=== PATIENT | female | born 1995 | race Caucasian/White ===

== ENCOUNTER 2017-08-14 18:21 | Inpatient (IN) ==
--- NOTE | 2017-08-14 19:26 | Emergency Department Note ---
Disposition Clinical Impression: Auditory hallucination, Suicidal ideation Disposition: Admitted As Inpatient Condition: Good Time of Disposition: 21:21 General Adult HPI - General Chief complaint: ED Psychiatric Symptoms Stated complaint: SI/auditory hallucinations Time Seen by Provider: 08/14/17 18:29 Source: patient, EMS Limitations: no limitations Nursing Notes Reviewed: Yes Vital Signs Reviewed: Yes - History of Present Illness HPI Narrative: 22-year-old female presents emergency department complaint of suicidal ideation and auditory hallucinations. Patient was sent here by her counselor for having auditory hallucinations telling her to kill herself. Patient did have a specific plan of driving her car into the counseling center. Patient denies homicidal ideation. Patient denies ever being hospitalized previously for this. She states she should be on medication for depression but stopped taking it 1 month ago. She denies any intentional ingestion prior to arrival. She states her last menstrual period was approximately a week and a half ago. She denies any medical complaints or concerns at this time. Pain Scale: 0 - Related Data Home Medications Medication Instructions Recorded Confirmed No Known Home Drugs 08/14/17 08/14/17 Allergies Allergy/AdvReac Type Severity Reaction Status Date / Time No Known Allergies Allergy Verified 01/06/17 17:14 All systems ED: reviewed and negative except as stated. Constitutional: Denies: fever Eyes: Reports: as per HPI ENT ED: Reports: as per HPI Cardiovascular: Denies: chest pain, palpitations Respiratory: Denies: cough, dyspnea, wheezes Gastrointestinal: Denies: abdominal pain, nausea, vomiting Genitourinary: Reports: as per HPI Musculoskeletal: Reports: as per HPI Integumentary: Reports: as per HPI Neurological: Reports: as per HPI Psychiatric: Reports: depression, suicidal thoughts, auditory hallucinations Endocrine: Reports: as per HPI Hematological/Lymphatic: Reports: as per HPI Allergic/Immunologic: Reports: as per HPI Past Medical History - Past Medical History Attestation: Yes The following information was validated with the patient. Medical history: Reports: no medical history Psychiatric history: Reports: no psych history BOW STAPLER history: Reports: no BOW STAPLER history - Social History Smoking Status: Current every day smoker Smokeless Tobacco Status: No Alcohol use: Reports: none Drug use: Reports: none Physical Exam - General Limitations: no limitations General appearance: alert, in no apparent distress - Head Head exam: atraumatic, normocephalic, normal inspection - Eye Eye exam: Present: normal appearance. Absent: scleral icterus, conjunctival injection - Chest Chest inspection: Present: normal inspection, symmetric chest wall rise. Absent : tenderness, rash - Respiratory Respiratory exam: Present: normal lung sounds bilaterally. Absent: respiratory distress, wheezes - Cardiovascular Cardiovascular exam: Present: regular rate, normal rhythm, normal heart sounds - Abdominal Exam Abdominal exam: Present: soft, Non-Tender. Absent: distention, guarding, rebound - Extremities Exam Extremities exam: Present: normal inspection, full ROM - Neurological Exam Neurological exam: Present: alert, oriented X3 - Psychiatric Psychiatric exam: Present: depressed, flat affect, suicidal ideation - Skin Skin exam: Present: warm, intact Course Course Narrative: 22-year-old female presenting with suicidal ideation with plan. We will obtain psychiatric lab work along with urine and urine test. We will then contact our services 1A for further psychiatric workup. Patient alert and oriented 3 in the room and stable vital signs. - Reevaluation(s) Reevaluation #1: Patient was evaluated at bedside by 1 day. It is determined that she fits inpatient criteria. Dr. Barker except the patient at this time. Time: 21:21 Vital Signs Temperature 98.0 F 08/14/17 18:34 Pulse Rate 92 08/14/17 18:34 Respiratory Rate 18 08/14/17 18:34 Blood Pressure 120/82 08/14/17 18:34 O2 Sat by Pulse Oximetry 97 08/14/17 18:34 Temperature 98.0 F 08/14/17 18:34 Pulse Rate 92 08/14/17 18:34 Respiratory Rate 18 08/14/17 18:34 Blood Pressure 120/82 08/14/17 18:34 O2 Sat by Pulse Oximetry 97 08/14/17 18:34 Oxygen Delivery Oxygen Delivery Room Air Medical Decision Making - Lab Data Result diagrams: 08/14/17 19:21 08/14/17 19:21 Lab Results 08/14/17 08/14/17 08/14/17 Range/Units 19:14 19:14 19:14 WBC (4.3-11.1) K/mcL RBC (3.82-4.97) M/mcL Hgb (11.5-15.4) g/dL Hct (35.3-44.9) % MCV (83.0-100.0) fL MCH (28.0-33.3) pg MCHC (31.6-35.5) g/dL RDW (11.5-14.5) % Plt Count (140-400) K/mcL MPV (9.4-12.4) fL Immature Gran % (0-4) % Seg Neutrophils % % Lymphocytes % % Monocytes % % Eosinophils % % Basophils % % Neutrophils # (1.6-8.9) K/mcL Lymphocytes # (0.6-4.6) K/mcL Monocytes # (0.0-1.3) K/mcL Eosinophils # (0.0-0.6) K/mcL Basophils # (0.0-0.2) K/mcL Immature Plt Fraction (1.1-6.1) % Sodium (136-145) mEq/L Potassium (3.5-4.5) mEq/L Chloride (98-109) mEq/L Carbon Dioxide (19-29) mEq/L BUN (7-20) mg/dL Creatinine (0.57-1.11) mg/dL Est GFR ( Amer) (> 60) Est GFR (Non-Af Amer) (> 60) BUN/Creatinine Ratio (6-26) Glucose (70-99) mg/dL Calculated Osmolality (280-300) Calcium (8.6-10.8) mg/dL Urine Color Yellow (Yellow) Urine Clarity Clear (Clear) Urine pH 6.5 (5.0-8.0) pH Units Ur Specific Calvin 1.016 (1.010-1.025) Urine Protein Negative (Neg-Trace) mg/dL Urine Glucose (UA) Normal (Normal) mg/dL Urine Ketones Negative (Negative) mg/dL Urine Blood Negative (Negative) Urine Nitrite Negative (Negative) Urine Bilirubin Negative (Negative) Urine Urobilinogen Normal (Normal) mg/dL Ur Leukocyte Esterase Negative (Negative) Urine Test Negative (Negative) Salicylates (15-30) mg/dL Urine Opiates Screen Negative (Mpdpkk=318) ng/mL Acetaminophen (10-30) mcg/mL Ur Barbiturates Screen Negative (Anmxpl=183) ng/mL Ur Phencyclidine Scrn Negative (Cutoff=25) ng/mL Ur Amphetamines Screen Negative (Cjpkkx=8321) ng/mL U Benzodiazepines Scrn Negative (Omqwnh=335) ng/mL Urine Cocaine Screen Negative (Cutoff= 300) ng/mL U Marijuana (THC) Screen Negative (Cutoff = 50) ng/mL Ethyl Alcohol (0-10) mg/dL 08/14/17 08/14/17 Range/Units 19:21 19:21 WBC 6.6 (4.3-11.1) K/mcL RBC 5.00 H (3.82-4.97) M/mcL Hgb 15.0 (11.5-15.4) g/dL Hct 43.9 (35.3-44.9) % MCV 87.8 (83.0-100.0) fL MCH 30.0 (28.0-33.3) pg MCHC 34.2 (31.6-35.5) g/dL RDW 13.3 (11.5-14.5) % Plt Count 256 (140-400) K/mcL MPV 9.5 (9.4-12.4) fL Immature Gran % 0.3 (0-4) % Seg Neutrophils % 51.2 % Lymphocytes % 35.6 % Monocytes % 10.3 % Eosinophils % 1.8 % Basophils % 0.8 % Neutrophils # 3.4 (1.6-8.9) K/mcL Lymphocytes # 2.4 (0.6-4.6) K/mcL Monocytes # 0.7 (0.0-1.3) K/mcL Eosinophils # 0.1 (0.0-0.6) K/mcL Basophils # 0.1 (0.0-0.2) K/mcL Immature Plt Fraction 3.9 (1.1-6.1) % Sodium 141 (136-145) mEq/L Potassium 3.6 (3.5-4.5) mEq/L Chloride 108 (98-109) mEq/L Carbon Dioxide 22 (19-29) mEq/L BUN 7 (7-20) mg/dL Creatinine 0.79 (0.57-1.11) mg/dL Est GFR ( Amer) > 60 (> 60) Est GFR (Non-Af Amer) > 60 (> 60) BUN/Creatinine Ratio 9 (6-26) Glucose 96 (70-99) mg/dL Calculated Osmolality 290 (280-300) Calcium 9.3 (8.6-10.8) mg/dL Urine Color (Yellow) Urine Clarity (Clear) Urine pH (5.0-8.0) pH Units Ur Specific Calvin (1.010-1.025) Urine Protein (Neg-Trace) mg/dL Urine Glucose (UA) (Normal) mg/dL Urine Ketones (Negative) mg/dL Urine Blood (Negative) Urine Nitrite (Negative) Urine Bilirubin (Negative) Urine Urobilinogen (Normal) mg/dL Ur Leukocyte Esterase (Negative) Urine Test (Negative) Salicylates < 5.0 L (15-30) mg/dL Urine Opiates Screen (Bgdzax=147) ng/mL Acetaminophen < 1.0 L (10-30) mcg/mL Ur Barbiturates Screen (Jxetjb=688) ng/mL Ur Phencyclidine Scrn (Cutoff=25) ng/mL Ur Amphetamines Screen (Hanqqb=4494) ng/mL U Benzodiazepines Scrn (Vuxlvj=369) ng/mL Urine Cocaine Screen (Cutoff= 300) ng/mL U Marijuana (THC) Screen (Cutoff = 50) ng/mL Ethyl Alcohol < 10 (0-10) mg/dL Attestation Statement - Attestation Attestation: I, Cliff Choudhury, examined this patient and my medical decision-making was reviewed with the SOLE TIER/PA/Advanced Practice Nurse/Resident Physician. I agree with the documented findings, disposition and treatment plan as described except to the extent set forth below. 22-year-old female presents emergency department for concerns of suicidal ideation and command auditory hallucinations. Patient states that this is occurred to her multiple times in the past. She stopped taking her medications prescribed by her [facility] provider at [facility]. [facility] sent the patient to the emergency department via ambulance secondary for concerns of suicidal ideation. The voices she is hearing and her head were telling her to crash the car into a tree 2 and her life. Patient denies suicidal ideation however other than these voices. Patient denies previous suicidal attempt within the past few days. Patient seen by behavioral who felt patient would benefit from inpatient therapy.
[2017-08-14 19:31] LABS: Basophils # 0.1 K/mcL (0.0-0.2); Basophils % 0.8 %; Eosinophils # 0.1 K/mcL (0.0-0.6); Eosinophils % 1.8 %; Hematocrit 43.9 % (35.3-44.9); Immature Granulocytes % 0.3 % (0-4); Immature Platelets 3.9 % (1.1-6.1); Lymphocytes # 2.4 K/mcL (0.6-4.6); Lymphocytes % 35.6 %; Mean Corpuscular HGB Conc 34.2 g/dL (31.6-35.5); Mean Corpuscular Volume 87.8 fL (83.0-100.0); Mean Platelet Volume 9.5 fL (9.4-12.4); Monocytes # 0.7 K/mcL (0.0-1.3); Monocytes % 10.3 %; Neutrophils # 3.4 K/mcL (1.6-8.9); Platelet Count 256 K/mcL (140-400); Red Cell Distribution Width 13.3 % (11.5-14.5); Segmented Neutrophils % 51.2 %
[2017-08-14 20:08] LABS: Clarity,Urine Clear (Clear); Color,Urine Yellow (Yellow); Glucose,Urine (UA) Normal (Normal)
[2017-08-14 20:09] LABS: Bilirubin,Urine Negative (Negative); Blood,Urine Negative (Negative); Ketones,Urine Negative (Negative); Nitrite,Urine Negative (Negative); PH,Urine 6.5 pH Units (5.0-8.0); Protein,Urine Negative (Neg-Trace); Specific Gravity,Urine 1.016 (1.010-1.025); Urobilinogen,Urine Normal (Normal)
[2017-08-14 20:10] LABS: Leukocyte Esterase,Urine Negative (Negative)
[2017-08-14 20:17] LABS: Amphetamine Screen,Urine Negative ng/mL (Cutoff=1000); Barbiturate Screen,Urine Negative ng/mL (Cutoff=200); Benzodiazepines Screen,Urine Negative ng/mL (Cutoff=200); Cannabinoid Screen,Urine Negative ng/mL (Cutoff = 50); Cocaine Screen,Urine Negative ng/mL (Cutoff= 300); Opiate Screen,Urine Negative ng/mL (Cutoff=300); Phencyclidine Screen,Urine Negative ng/mL (Cutoff=25)
[2017-08-14 20:19] LABS: BUN/Creatinine Ratio 9 (6-26); Blood Urea Nitrogen 7 mg/dL (7-20); Calcium 9.3 mg/dL (8.6-10.8); Carbon Dioxide 22 mEq/L (19-29); Chloride 108 mEq/L (98-109); Glucose 96 mg/dL (70-99); Osmolality,Calculated 290 (280-300); Potassium 3.6 mEq/L (3.5-4.5); Sodium 141 mEq/L (136-145); eGFR For African Americans > 60 (> 60); eGFR For Non-African Americans > 60 (> 60)
[2017-08-14 20:20] LABS: Acetaminophen < 1.0 mcg/mL (10-30)
[2017-08-14 20:21] LABS: Ethanol < 10 mg/dL (0-10); Salicylate < 5.0 mg/dL (15-30)
[2017-08-14] MEDS ORDERED: *HR* LORazepam 2 MG/ML VIAL IM PRN (21:36)
[2017-08-14] MEDS ORDERED: Mag Hydrox/Al Hydrox/Simeth 30 ML UDC PO PRN (21:36)
[2017-08-14] MEDS ORDERED: Acetaminophen 325 MG TABLET PO PRN (21:36)
[2017-08-14] MEDS ORDERED: MOM Conc 10 ML UD.LIQ PO PRN (21:36)
[2017-08-14] MEDS ORDERED: Haloperidol Lactate 5 MG/ML VIAL IM PRN (21:36)
[2017-08-14] MEDS ORDERED: *HR* LORazepam 1 MG TABLET PO PRN (21:36)
[2017-08-14] MEDS ORDERED: traZODone 50 MG TABLET PO PRN (21:36)
[2017-08-14] MEDS ORDERED: hydrOXYzine pamoate 25 MG CAPSULE PO PRN (21:36)
--- NOTE | 2017-08-15 11:28 | Psychiatry History & Physical ---
Date of Encounter: 08/15/17 Time of Encounter: 10:30 History of Present Illness Patient Stated Chief Complaint: Auditory hallucination and suicidal ideation Medicare Admission Attestation: For traditional Medicare patients the provided hospital inpatient services are reasonable and necessary and in the case of services not specified as inpatient -only under 42 CFR 419.22 (n), that they are appropriately provided as inpatient services in accordance 42 CFR 412.3. For Critical Access Hospital the patient may reasonably be expected to be discharged or transferred to a hospital within 96 hours after admission to the Critical Access Hospital. Admitted From: Direct Admit ([facility]) History of Present Illness: Ms. Gilmore is a 22 year old female admitted from [facility] for evaluation treatment of auditory hallucinations and suicidal ideation. Patient reports hearing voices commanding her to hurt herself and others and feeling depressed also she has been out of her medication for the past month. She is not presenting any specific stressor, complaining of poor sleep, irritability, auditory hallucinations and suicidal ideation with plans to crash her car. Patient has a history of recurrent depression and has been treated with medication and counseling apparently she was noncompliant. UDS was negative and she denies any use of alcohol or drugs. Past Med Surg Social Fam HX - Past Medical History Medical history: no medical history - Past Psychiatric History Psychiatric history: Reports: depression. Denies: previous psychiatric hospitalization - Past Surgical History Surgical History: no surgical history - Social History Smoking Status: Current every day smoker Smokeless Tobacco Status: No Alcohol use: none Drug use: none Medications & Allergies No Known Home Drugs 08/14/17 [History] 3 Allergy/AdvReac Type Severity Reaction Status Date / Time No Known Allergies Allergy Verified 01/06/17 17:14 Review of Systems Psychiatric: Reports: depression, suicidal ideation, homicidal ideation Mental Status Exam Patient orientation: Yes Person, Yes Time, Yes Place Level of alertness: Alert Patient appearance: Appropriate, Well Groomed Behavior: calm, cooperative, guarded Psychomotor activity: Normal Eye contact: Maintains Eye Contact Mood description: Euthymic/stable Affect description: congruent with mood, constricted Speech pattern: Normal rate, Normal rhythm, Normal tone Speech volume: Soft/Quiet Thought process: Linear, Goal Oriented Thought content: Yes Suicidal ideation, Yes Homicidal ideation, No Overt delusions Perceptual disturbances: Yes Auditory hallucinations, No Visual hallucinations Attention span: Capable of Focused Attention Memory description: Grossly Intact Patient reliability: Reliable Historian Intelligence estimate: Average Judgment: Limited Insight: Partial Results - Vital Signs Vital signs: Temp Pulse Resp BP Pulse Ox 98.1 F 71 16 118/77 97 08/15/17 09:00 08/15/17 09:00 08/15/17 09:00 08/15/17 09:00 08/14/17 18:34 - Labs Labs: Laboratory Last Values WBC 6.6 K/mcL (4.3-11.1) 08/14/17 19:21 RBC 5.00 M/mcL (3.82-4.97) H 08/14/17 19:21 Hgb 15.0 g/dL (11.5-15.4) 08/14/17 19:21 Hct 43.9 % (35.3-44.9) 08/14/17 19:21 MCV 87.8 fL (83.0-100.0) 08/14/17 19:21 MCH 30.0 pg (28.0-33.3) 08/14/17 19:21 MCHC 34.2 g/dL (31.6-35.5) 08/14/17 19:21 RDW 13.3 % (11.5-14.5) 08/14/17 19:21 Plt Count 256 K/mcL (140-400) 08/14/17 19:21 MPV 9.5 fL (9.4-12.4) 08/14/17 19:21 Immature Gran % 0.3 % (0-4) 08/14/17 19:21 Seg Neutrophils % 51.2 % 08/14/17 19:21 Lymphocytes % 35.6 % 08/14/17 19:21 Monocytes % 10.3 % 08/14/17 19:21 Eosinophils % 1.8 % 08/14/17 19:21 Basophils % 0.8 % 08/14/17 19:21 Neutrophils # 3.4 K/mcL (1.6-8.9) 08/14/17 19:21 Lymphocytes # 2.4 K/mcL (0.6-4.6) 08/14/17 19:21 Monocytes # 0.7 K/mcL (0.0-1.3) 08/14/17 19:21 Eosinophils # 0.1 K/mcL (0.0-0.6) 08/14/17 19:21 Basophils # 0.1 K/mcL (0.0-0.2) 08/14/17 19:21 Immature Plt Fraction 3.9 % (1.1-6.1) 08/14/17 19:21 Sodium 141 mEq/L (136-145) 08/14/17 19:21 Potassium 3.6 mEq/L (3.5-4.5) 08/14/17 19:21 Chloride 108 mEq/L (98-109) 08/14/17 19:21 Carbon Dioxide 22 mEq/L (19-29) 08/14/17 19:21 BUN 7 mg/dL (7-20) 08/14/17 19:21 Creatinine 0.79 mg/dL (0.57-1.11) 08/14/17 19:21 Est GFR ( Amer) > 60 (> 60) 08/14/17 19:21 Est GFR (Non-Af Amer) > 60 (> 60) 08/14/17 19:21 BUN/Creatinine Ratio 9 (6-26) 08/14/17 19:21 Glucose 96 mg/dL (70-99) 08/14/17 19:21 Calculated Osmolality 290 (280-300) 08/14/17 19:21 Calcium 9.3 mg/dL (8.6-10.8) 08/14/17 19:21 Urine Color Yellow (Yellow) 08/14/17 19:14 Urine Clarity Clear (Clear) 08/14/17 19:14 Urine pH 6.5 pH Units (5.0-8.0) 08/14/17 19:14 Ur Specific [place] 1.016 (1.010-1.025) 08/14/17 19:14 Urine Protein Negative mg/dL (Neg-Trace) 08/14/17 19:14 Urine Glucose (UA) Normal mg/dL (Normal) 08/14/17 19:14 Urine Ketones Negative mg/dL (Negative) 08/14/17 19:14 Urine Blood Negative (Negative) 08/14/17 19:14 Urine Nitrite Negative (Negative) 08/14/17 19:14 Urine Bilirubin Negative (Negative) 08/14/17 19:14 Urine Urobilinogen Normal mg/dL (Normal) 08/14/17 19:14 Ur Leukocyte Esterase Negative (Negative) 08/14/17 19:14 Urine Test Negative (Negative) 08/14/17 19:14 Salicylates < 5.0 mg/dL (15-30) L 08/14/17 19:21 Urine Opiates Screen Negative ng/mL (Ofxemm=977) 08/14/17 19:14 Acetaminophen < 1.0 mcg/mL (10-30) L 08/14/17 19:21 Ur Barbiturates Screen Negative ng/mL (Coaljj=867) 08/14/17 19:14 Ur Phencyclidine Scrn Negative ng/mL (Cutoff=25) 08/14/17 19:14 Ur Amphetamines Screen Negative ng/mL (Sxscdf=7734) 08/14/17 19:14 U Benzodiazepines Scrn Negative ng/mL (Pwujye=156) 08/14/17 19:14 Urine Cocaine Screen Negative ng/mL (Cutoff= 300) 08/14/17 19:14 U Marijuana (THC) Screen Negative ng/mL (Cutoff = 50) 08/14/17 19:14 Ethyl Alcohol < 10 mg/dL (0-10) 08/14/17 19:21 Assessment and Plan (1) Depression, major, recurrent, severe with psychosis Current visit: Yes Status: Acute Plan: Admit inpatient for safety and stabilization, Close observation, Suicide Precautions per unit protocol, Encourage participation in unit milieu, Group Therapy, Monitor sleep, Monitor appetite Additional Plan: We will start patient on Abilify 2 mg daily and Zoloft 75 mg daily. Risks, benefits, side effects, alternatives discussed w/pt: Yes Patient agreeable to treatment: Yes Estimated Length of Stay (Days): 5
[2017-08-15] MEDS: ARIPiprazole 2 MG TABLET PO SCH (11:47)
[2017-08-15] MEDS: Nicotine 2 MG GUM BC PRN ×2 (15:45→20:00)
[2017-08-16] MEDS: ARIPiprazole 2 MG TABLET PO SCH (07:32)
[2017-08-16] MEDS: Nicotine 2 MG GUM BC PRN ×6 (07:32→19:25)
--- NOTE | 2017-08-16 11:22 | Psychiatry Progress Note ---
Date of Encounter: 08/16/17 Time of Encounter: 11:18 Subjective Interval history: Patient is seen for follow-up. She reports less auditory hallucinations, she denies suicidal ideation. She denies any problem with sleep. Participated in groups. She is concerned about going back to work and likes to keep her job. She was educated about medication and compliance. Review of Systems Psychiatric: Reports: depression, suicidal ideation, homicidal ideation Objective: Exam Patient orientation: Yes Person, Yes Time, Yes Place Level of alertness: Alert Patient appearance: Appropriate, Well Groomed Behavior: calm, cooperative, guarded Psychomotor activity: Normal Eye contact: Maintains Eye Contact Mood description: Euthymic/stable Affect description: congruent with mood, full range Speech pattern: Normal rate, Normal rhythm, Normal tone Speech volume: Normal Thought process: Linear, Goal Oriented Thought content: No Suicidal ideation, No Homicidal ideation, No Overt delusions Perceptual disturbances: No Auditory hallucinations, No Visual hallucinations Judgment: Fair Insight: Partial Results - Vital Signs Vital Signs: Temp Pulse Resp BP Pulse Ox 98.4 F 71 18 130/91 97 08/16/17 09:00 08/16/17 09:00 08/16/17 09:00 08/16/17 09:00 08/14/17 18:34 Assessment and Plan (1) Depression, major, recurrent, severe with psychosis Current visit: Yes Status: Acute Plan: Continue hospitalization, Close observation, Suicide Precautions per unit protocol, Encourage participation in unit milieu, Group Therapy, Monitor sleep, Monitor appetite Risks, benefits, side effects, alternatives discussed w/pt: Yes Patient agreeable to treatment: Yes Consult Discharge Plan - Plan
[2017-08-17] MEDS: ARIPiprazole 2 MG TABLET PO SCH (08:28)
[2017-08-17] MEDS: Nicotine 2 MG GUM BC PRN ×2 (09:06→12:20)
[2017-08-17 09:20] VITALS: BP 118/82
--- NOTE | 2017-08-17 11:15 | Discharge Summary ---
Date of Encounter: 08/17/17 Time of Encounter: 11:11 Diagnosis - Discharge Diagnosis (1) Depression, major, recurrent, severe with psychosis Status: Acute Medications - Discharge Medications Prescriptions: ARIPiprazole [Abilify] 2 mg PO DAILY #30 tablet Sertraline [Zoloft] 75 mg PO DAILY #45 tablet traZODone [TraZODone] 50 mg PO HS PRN #30 tablet PRN Reason: Insomnia ARIPiprazole [Abilify] 2 mg PO DAILY #30 tablet 08/17/17 [Rx] Sertraline [Zoloft] 75 mg PO DAILY #45 tablet 08/17/17 [Rx] traZODone [TraZODone] 50 mg PO HS PRN #30 tablet 08/17/17 [Rx] 3 Allergy/AdvReac Type Severity Reaction Status Date / Time No Known Allergies Allergy Verified 01/06/17 17:14 Provider Date of admission: 08/14/17 21:36 Primary care physician: PCP NONE Discharging clinician: Victor M Barker Assessment and Plan - Patient/Caregiver Discharge Instructions Activity: resume usual activities as tolerated Diet: regular diet - Follow up Plan Follow up with: [facility] [Outside] - 08/20/17 9:00 am (The above appointment is with Sandee Washington for mental health counseling services. You will also see Yenifer Tyler for outpatient psychiatric assessmemt and medication management services on 08/29/2017 at 9:00am in the same office.) Functional capacity at discharge: independent ambulation Overall status at discharge: Stable Disposition: Home, Self-Care Hospital Course Hospital course: Ms. Gilmore is a 22 year old female admitted for suicidal ideation and auditory hallucinations. For details of admission please see H&P On the units patient was started on Abilify and Zoloft. She tolerated the medication she reported improved sleep, she reported less auditory hallucinations. She was seclusive to her room at first, then she participated in activities and groups and socialized with other patients. Prior to discharge she denied suicidal ideation and she denied auditory hallucinations and denied any feeling of depression. Discharge plans were reviewed with the nephrology social worker for counseling and medication management. On discharge patient was medically stable, nonpsychotic or suicidal. She was educated about her illness and treatment compliance. She is discharged in stable condition. - Time Spent with Patient Total time spent providing and/or coordinating discharge services: Greater than 30 minutes Quality - Multiple Antipsychotics Patient discharged on 2 or more antipsychotic medications: No Procedures - Procedures Procedures: Medication Management, Crisis Stabilization, Supportive Therapy, Group Therapy, Psychoeducational Therapy Mental Status Exam - Mental Status Exam Patient orientation: Yes Person, Yes Time, Yes Place Level of alertness: Alert Patient appearance: Appropriate, Well Groomed Behavior: calm, cooperative Psychomotor activity: Normal Eye contact: Maintains Eye Contact Mood description: Euthymic/stable Affect description: congruent with mood, full range Speech pattern: Normal rate, Normal rhythm, Normal tone Speech Volume: Normal Thought process: Linear, Goal Oriented Thought Content: No Suicidal ideation, No Homicidal ideation, No Overt delusions Perceptual Disturbances: No Auditory hallucinations, No Visual hallucinations Judgment: Limited Insight: Partial
[2017-08-17] MEDS ORDERED: FLUARIX QUAD 2017-18 36MOS UP/PF 0.5 ML SYRINGE IM ONE (11:23)
== END 2017-08-17 12:59 | disposition home or self-care (01) | DRG 751 ==
LOC: 1ANU 18:21 → EMEROO 18:21 → 1ANU 21:57
PROVIDERS: ADMIT Psychiatry & Neurology Psychiatry; ATTEND Psychiatry & Neurology Psychiatry